=== PATIENT | male | born 1990 | race Caucasian/White ===

== ENCOUNTER 2025-02-12 16:00 | Emergency (ER) | payer OTHER ==
[~2025-02-12] VITALS: Ht 182.9 cm; Wt 77.3 kg
[2025-02-12] MEDS ORDERED: SERTRALINE HYD100 MG PO (16:08)
[2025-02-12] MEDS ORDERED: CYCLOBENZAPRINE10 M1 PO ×2 (16:08→17:29)
[2025-02-12] MEDS ORDERED: MELOXICAM7.5 MG PO (16:11)
[2025-02-12 16:31] LABS: URINE WBC 0 /hpf (0-3)
[2025-02-12 16:39] LABS: BASO # 0.04 K/mm3 (0.02-0.10); EOS # 0.17 K/mm3 (0.04-0.40); EOS % 2.2 % (0.0-4.0); HEMATOCRIT 45.2 % (42.0-52.0); HEMOGLOBIN 15.4 g/dL (13.5-18.0); LYMPH# 2.02 K/mm3 (1.50-4.00); MEAN CELL VOLUME 94 fl (78-100); MEAN CORPUSCULAR HEMOGLOBIN 32 pg (27-31); MEAN CORPUSCULAR HGB CONC 34 g/dL (33-37); MEAN PLATELET VOLUME 10.8 fl (7.4-10.4); MONO # 0.53 K/mm3 (0.20-0.80); NEU # 5.05 K/mm3 (1.40-6.50); PLATELET COUNT 242 K/mm3 (130-400); RED BLOOD COUNT 4.83 M/mm3 (4.20-5.60); RED CELL DISTRIBUTION WIDTH 12.9 % (11.5-14.5); WHITE BLOOD COUNT 7.8 K/mm3 (4.8-10.8)
[2025-02-12 16:42] LABS: ALBUMIN 4.6 g/dL (3.5-5.0)
[2025-02-12 16:43] LABS: CALCIUM 9.6 mg/dL (8.3-10.5)
[2025-02-12 16:44] LABS: TOTAL PROTEIN 7.5 g/dL (6.4-8.3)
[2025-02-12] MEDS ORDERED: Ketorolac 30 MG/ML VIAL IM ONE (16:45)
[2025-02-12] MEDS ORDERED: Orphenadrine 60 MG/2ML AMP IM ONE (16:45)
[2025-02-12 16:46] LABS: TOTAL BILIRUBIN 0.3 mg/dL (0.2-1.2)
[2025-02-12 16:51] LABS: PH-URINE 6.5 (5.0 - 8.0); URINE APPEARANCE CLEAR (CLEAR); URINE BILIRUBIN NEGATIVE (NEGATIVE); URINE BLOOD NEGATIVE (NEGATIVE); URINE GLUCOSE NEGATIVE (NEGATIVE); URINE KETONE NEGATIVE (NEGATIVE); URINE LEUKOCYTE ESTERASE NEGATIVE (NEGATIVE); URINE NITRATE NEGATIVE (NEGATIVE); URINE PROTEIN(semi-quant) NEGATIVE (NEGATIVE)
[2025-02-12 16:52] LABS: URINE COLOR LIGHT YELLOW (YELLOW)
[2025-02-12] MEDS ORDERED: Home HYDROcodone/Acetaminophen 5/325 MG #4 TABS/PACK PO ONE (17:30)
[2025-02-12 17:39] VITALS: BP 121/76
== END 2025-02-12 17:40 | disposition home or self-care (01) ==
LOC: ED 16:00
PROVIDERS: Physician Assistant
DX: M54.50 Low back pain, unspecified (principal)
CPT/HCPCS: J1885; J2360